=== PATIENT | female | born 1990 | race American Indian/Alaskan Native ===

== ENCOUNTER 2021-05-22 11:49 | Emergency (ER) | payer MEDICAID ==
--- NOTE | 2021-05-22 12:25 | Event Note ---
ED Screening Note ED Screening Note: LMP 04/22 PREG TEST 2 DAYS FAINT LINE CO L SIDE PAIN AND CRAMPING no dysuria pos vag dc- white G7 G2 ectopic 1 miscarriage 4 no obgyn here pmh none psh ectopic cyst from back rx none etoh occ This initial assessment/diagnostic orders/clinical plan/treatment(s) is/are subject to change based on patients health status, clinical progression and re- assessment by fellow clinical providers in the ED. Further treatment and workup at subsequent clinical providers discretion. Patient/guardian urged not to elope from the ED as their condition may be serious if not clinically assessed and managed. Initial orders include: ro preg/ectopic
[2021-05-22 13:29] LABS: HCG Qualitative,Urine Negative (Negative)
[2021-05-22 13:30] LABS: Bilirubin,Urine NEG (Negative); Blood,Urine NEG (Negative); Color,Urine Yellow (Yellow); Mucus,Urine FEW /HPF; Protein,Urine <15 mg/dL mg/dL (Negative)
[2021-05-22 13:41] LABS: Hematocrit 34.7 % (30.3-42.9); Hemoglobin 11.8 gm/dl (10.1-14.3); Mean Corpuscular HGB Conc 34 % (30-34); Mean Corpuscular Volume 93 fl (79-97); Platelet Count 198 K/mm3 (140-440); Red Blood Count 3.73 M/mm3 (3.65-5.03); Red Cell Distribution Width 12.7 % (13.2-15.2)
[2021-05-22 14:37] LABS: BUN/Creatinine Ratio 11; Blood Urea Nitrogen 10 mg/dL (7-17); Calcium 9.4 mg/dL (8.4-10.2); Hemolysis Index 1
--- NOTE | 2021-05-22 15:09 | Emergency Department Report ---
ED Abdominal Pain HPI - General Chief Complaint: Abdominal Pain Stated Complaint: Time Seen by Provider: 05/22/21 12:22 Source: patient Mode of arrival: Ambulatory Limitations: No Limitations - History of Present Illness Initial Comments: 30-year-old female presents to the ER today with complaints of abdominal pain. Patient states that abdominal pain started 2 days ago. She states she is been having pain in the center aspect of her abdomen and also her left lower quadrant. She states that the pain in the center of abdomen has been crampy and the left lower quadrant pain has been sharp. Both have been intermittent in nature. She reports associated nausea, but denies any vomiting, or any bowel changes, abnormal vaginal symptoms or UTI symptoms. Patient states that she took a Plan B on April 06. She bled from April 12 through April 19. Then she started bleeding again april 22 April 27 which she thinks was when her period was supposed to start. She states that she has not had a period for April as yet. She states that she took a home test 2 days ago and she is not sure if it was positive as one of the lines with faint. She did not take any additional home test. She does not currently have [facility]ERGY SPECIALIST as she recently moved here from [place] June 2020. Patient states she is AB 3, 1 ectopic. Complaint: abdominal pain -: days(s) (2) - Related Data Allergies Allergy/AdvReac Type Severity Reaction Status Date / Time Penicillins Allergy Hives Verified 05/22/21 12:22 ED Review of Systems ROS: Stated complaint: Other details as noted in HPI Comment: All other systems reviewed and negative Respiratory: denies: cough, shortness of breath, wheezing Cardiovascular: denies: chest pain, palpitations Gastrointestinal: abdominal pain, nausea. denies: vomiting, diarrhea, constipation, hematemesis, melena, hematochezia Genitourinary: denies: urgency, dysuria, frequency, hematuria, discharge, abnormal menses, dyspareunia Musculoskeletal: denies: back pain, joint swelling, arthralgia Skin: denies: rash, lesions, change in color, change in hair/nails, pruritus Neurological: denies: headache, weakness, numbness, paresthesias, confusion, abnormal gait, vertigo Psychiatric: denies: anxiety, depression, auditory hallucinations, visual hallucinations, homicidal thoughts, suicidal thoughts Hematological/Lymphatic: denies: easy bleeding, easy bruising, swollen glands ED Past Medical Hx - Past Medical History Hx GERD: Yes Additional medical history: Gastric ulcer, Ectopic - Social History Smoking Status: Former Smoker Substance Use Type: Alcohol ED Physical Exam - General Limitations: No Limitations General appearance: alert, in no apparent distress - Head Head exam: Present: atraumatic, normocephalic, normal inspection - Eye Eye exam: Present: normal appearance, PERRL, EOMI Pupils: Present: normal accommodation - Neck Neck exam: Present: normal inspection, full ROM - Respiratory Respiratory exam: Absent: respiratory distress - Cardiovascular Cardiovascular Exam: Present: regular rate - GI/Abdominal GI/Abdominal exam: Present: soft, tenderness (Mild ttp suprapubic and rlq but no McBurney's point tenderness and no guarding or rebound.). Absent: distended - Neurological Exam Neurological exam: Present: alert, oriented X3, CN II-XII intact, normal gait - Psychiatric Psychiatric exam: Present: normal affect, normal mood - Skin Skin exam: Present: intact ED Course Vital Signs 05/22/21 12:19 Temperature 98.4 F Pulse Rate 64 Respiratory 16 Rate Blood Pressure 105/63 O2 Sat by Pulse 100 Oximetry ED Medical Decision Making - Lab Data Result diagrams: 05/22/21 12:44 05/22/21 12:44 - Medical Decision Making 1522: Patient currently resting comfortably. She is not in any acute distress. She appears well and is nontoxic. She appears well-hydrated. She has a nonsurgical abdominal exam. Her vital signs are stable. Labs reviewed and it is noted that she has a positive quantitative hCG but low measuring at 7.26. Given such a low quantitative levels, it is likely that nothing will be sent on ultrasound. Discussed case with Dr Cardoza and he agreed and recommend that patient return to the ER in 2 to 3 days for repeat quant hCG. Patient also states that she tried to make an appointment with an ALLERGY SPECIALIST office today but she did not have insurance. Patient will be given a couple of ALLERGY SPECIALIST for follow-up but in the meantime recommend that she comes to the ER for repeat quant especially given her prior history of ectopic she will need close follow-up. Patient expressed understanding of instructions and agreed with plan. Pt was stable at time of d/c. Critical care attestation.: If time is entered above; I have spent that time in minutes in the direct care of this critically ill patient, excluding procedure time. ED Disposition Clinical Impression: Abdominal pain during in first trimester Disposition: TO HOME OR SELFCARE Is pt being admited?: No Does the pt Need Aspirin: No Condition: Stable Instructions: Abdominal Pain During , Abdominal Pain (ED) Additional Instructions: Recommend that she return here to the ER in 2 to 3 days for repeat quant hCG given your history of ectopic and while you are working on getting your ins urance establish for follow-up with ALLERGY SPECIALIST. Once you have established insurance I recommend follow-up with ALLERGY SPECIALIST this listed on your discharge instructions. Recommend Tylenol for pain as needed. Return to the ER sooner if symptoms worsens. Referrals: [facility] [Provider Group] - 3-5 Days [facility] [Provider Group] - 3-5 Days [facility] [Provider Group] - 3-5 Days Time of Disposition: 15:20
[2021-05-22 15:32] VITALS: BP 102/63
== END 2021-05-22 15:34 | disposition home or self-care (01) ==
LOC: ED 11:49
DX: O26.891 Other specified pregnancy related conditions, first trimester (principal); R10.32 Left lower quadrant pain; Z3A.01 Less than 8 weeks gestation of pregnancy
CPT/HCPCS: 36415; 80048; 81001; 81025; 84702; 85027

== ENCOUNTER 2022-05-27 01:14 | Emergency (ER) | payer MEDICAID ==
[2022-05-27 03:01] LABS: Bilirubin,Urine NEG (Negative); Blood,Urine SM (Negative); Color,Urine Amber (Yellow)
[2022-05-27 03:03] LABS: Mucus,Urine 3+ /HPF
[2022-05-27] MEDS ORDERED: ACETAMINOPHEN 500 MG TAB PO ONE (05:25)
[2022-05-27] MEDS ORDERED: cephALEXin 500 MG CAP PO ONE (05:25)
[2022-05-27 06:43] VITALS: BP 120/68
--- NOTE | 2022-05-27 06:50 | Emergency Department Report ---
ED Female HPI - General Chief complaint: Urogenital-Female Stated complaint: PAINFUL URINATION Source: patient Mode of arrival: Ambulatory Limitations: No Limitations - History of Present Illness Initial comments: Patient 31-year-old female with current menses who presents for painful urination x3 days. Patient denies fevers or chills does endorse frequency urgency and dysuria. There is no hematuria. No history of renal stones. Patient denies vaginal discharge no concern for STI. Symptoms are exacerbated by voiding. Symptoms are relieved by nothing tried. MD Complaint: dysuria - Related Data Previous Rx's Medication Instructions Recorded Last Taken Type Ibuprofen [Motrin 800 MG tab] 800 mg PO Q8HR PRN #30 tablet 05/27/22 Unknown Rx cephALEXin [Keflex] 500 mg PO BID 7 Days #14 cap 05/27/22 Unknown Rx Allergies Allergy/AdvReac Type Severity Reaction Status Date / Time Penicillins Allergy Hives Verified 05/22/21 12:22 ED Review of Systems ROS: Stated complaint: PAINFUL URINATION Other details as noted in HPI Constitutional: denies: chills, fever Eyes: denies: eye pain, eye discharge, vision change ENT: denies: ear pain, throat pain Respiratory: denies: cough, shortness of breath, wheezing Cardiovascular: denies: chest pain, palpitations Endocrine: no symptoms reported Gastrointestinal: denies: abdominal pain, nausea, vomiting, diarrhea Genitourinary: urgency, dysuria, frequency. denies: hematuria, discharge Musculoskeletal: denies: back pain, joint swelling, arthralgia Skin: denies: rash, lesions Neurological: denies: headache, weakness, paresthesias Psychiatric: denies: anxiety, depression Hematological/Lymphatic: denies: easy bleeding, easy bruising ED Past Medical Hx - Past Medical History Previous Medical History?: Yes Hx GERD: Yes Additional medical history: Gastric ulcer, Ectopic - Social History Smoking Status: Former Smoker Substance Use Type: Alcohol - Medications Home Medications: Home Medications Medication Instructions Recorded Confirmed Last Taken Type Ibuprofen [Motrin 800 MG tab] 800 mg PO Q8HR PRN #30 tablet 05/27/22 Unknown Rx cephALEXin [Keflex] 500 mg PO BID 7 Days #14 cap 05/27/22 Unknown Rx ED Physical Exam - General Limitations: No Limitations General appearance: alert, in no apparent distress - Head Head exam: Present: normocephalic - Eye Eye exam: Present: EOMI Pupils: Present: normal accommodation - ENT ENT exam: Present: mucous membranes moist - Neck Neck exam: Present: normal inspection, full ROM. Absent: tenderness - Respiratory Respiratory exam: Present: normal lung sounds bilaterally. Absent: respiratory distress, wheezes - Cardiovascular Cardiovascular Exam: Present: regular rate, normal rhythm, normal heart sounds. Absent: systolic murmur, diastolic murmur, rubs, gallop - GI/Abdominal GI/Abdominal exam: Present: soft, normal bowel sounds. Absent: distended, tenderness - Rectal Rectal exam: Present: deferred - Extremities Exam Extremities exam: Present: normal inspection, full ROM. Absent: tenderness - Back Exam Back exam: Present: normal inspection, full ROM. Absent: CVA tenderness (R), CVA tenderness (L) - Neurological Exam Neurological exam: Present: alert, oriented X3 - Psychiatric Psychiatric exam: Present: normal affect, normal mood - Skin Skin exam: Present: warm, dry, intact, normal color. Absent: rash ED Course Vital Signs 05/27/22 05/27/22 01:19 04:30 Temperature 98.6 F Pulse Rate 94 H 80 Respiratory 18 19 Rate Blood Pressure 122/79 Blood Pressure 120/68 [Right] O2 Sat by Pulse 99 99 Oximetry ED Medical Decision Making - Lab Data Labs 05/27/22 Unknown Urine Color Silvana Urine Turbidity Slightly-cloudy Urine pH 6.0 Ur Specific [place] 1.029 Urine Protein 30 mg/dl Urine Glucose (UA) Neg Urine Ketones Tr Urine Blood Sm Urine Nitrite Neg Urine Bilirubin Neg Urine Urobilinogen 4.0 Ur Leukocyte Esterase Tr Urine WBC (Auto) 18.0 H Urine RBC (Auto) 5.0 U Epithel Cells (Auto) 26.0 H Urine Mucus 3+ - Medical Decision Making Patient advises symptoms are improved with medications given in ED. UA noted above plan treat for UTI, hCG is negative patient will follow up with primary care doctor in 2 to 3 days. Patient verbalized agreement understanding with discharge plan. Patient DC'd home in stable condition at this time. Critical care attestation.: If time is entered above; I have spent that time in minutes in the direct care of this critically ill patient, excluding procedure time. ED Disposition Clinical Impression: UTI (urinary tract infection) Qualifiers: Urinary tract infection type: acute cystitis Hematuria presence: without hematuria Qualified Code(s): N30.00 - Acute cystitis without hematuria Disposition: HOME / SELF CARE / HOMELESS Is pt being admited?: No Does the pt Need Aspirin: No Condition: Stable Instructions: Urinary Tract Infection, Adult Additional Instructions: Take medication as prescribed, follow-up with your doctor in 2 to 3 days. Return to emergency department should symptoms worsen. Prescriptions: cephALEXin [Keflex] 500 mg PO BID 7 Days #14 cap Ibuprofen [Motrin 800 MG tab] 800 mg PO Q8HR PRN #30 tablet PRN Reason: Pain Referrals: ESTEBAN MCGOVERN MD [Staff Physician] - 3-5 Days Forms: Work/School Release Form(ED) Time of Disposition: 06:52
[2022-05-27 06:58] LABS: HCG Qualitative,Urine Negative (Negative)
== END 2022-05-27 06:57 | disposition home or self-care (01) ==
LOC: ED 01:14
DX: N39.0 Urinary tract infection, site not specified (principal); Z87.891 Personal history of nicotine dependence; F10.20 Alcohol dependence, uncomplicated; Z88.0 Allergy status to penicillin
CPT/HCPCS: 81001; 81025; 87076; 87086; 87186; 99283